=== PATIENT | male | born 1985 | race Caucasian/White ===

== ENCOUNTER 2019-09-16 00:55 | Emergency (ER) | payer SELFPAY ==
[2019-09-16 00:57] VITALS: BP 138/83; PULSE 107; RESP 18; TEMP 37.2; O2SAT 94; BMI 35.6
--- NOTE | 2019-09-16 01:12 | RAD_ITS ---
STUDY: X-RAY CHEST REASON FOR EXAM: Male, 34 years old. c/o nausea, vomiting, blurred vision and being lightheaded -- denies any pain TECHNIQUE: PA and lateral views of the chest. COMPARISON: None. FINDINGS: There is mild right middle lobe atelectasis, remainder of the lungs are clear and expanded. There is no demonstrated pleural abnormality. Normal size heart. Normal mediastinum and kumar. Normal visualized pulmonary arteries. Normal visualized aortic arch and descending thoracic aorta. Normal visualized thoracic spine. Normal visualized ribs, clavicles, and shoulders. There is no demonstrated abnormality of the visualized soft tissue structures of the upper abdomen. RAD/Chest PA and Lateral IMPRESSION: Mild right middle lobe atelectasis otherwise normal x-ray examination of the chest. Electronically Signed: Desire Saez MD at 1:33 EST , Service support ,
--- NOTE | 2019-09-16 01:12 | EKG12_ITS ---
Test Reason : DYSRHYTHMIA Blood Pressure : / mmHG Vent. Rate : 099 BPM Atrial Rate : 099 BPM P-R Int : 170 ms QRS Dur : 088 ms QT Int : 336 ms P-R-T Axes : 036 063 030 degrees QTc Int : 431 ms Normal sinus rhythm Normal ECG Confirmed by ANNA JARAMILLO, BOOGIE ([id number]), general expeditor GUMARO MIGUEL ([id number]) on 09/17/2019 1:54:09 PM Referred By: GERDA Confirmed By:BOOGIE CASTILLO MD
--- NOTE | 2019-09-16 01:13 | ED.VIS.GEN ---
History of Present Illness Chief Complaint: Syncope Informant: Patient Narrative: States that he was having near syncopal episodes at work this evening. 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 He did not pass out. Yesterday he had nausea and vomiting x2 at work. He rested throughout the day today and felt normal when he went to work tonight. Denies any respiratory symptoms. Denies any past medical history. Denies any heart condition. Denies any pulmonary embolism risk factors. Currently he has no symptoms. This happened multiple times at work this evening. He is unsure if he is dehydrated. He does smoke cigarettes. Denies any flulike symptoms. Worsened by getting up. Relieved with resting Past Medical History - Allergies and Home Meds Allergies/Adverse Reactions: Allergies aspirin Adverse Reaction (Verified 09/16/19 00:59) Bleeding Prior records reviewed: Yes Past Medical History: None Surgical History: no surgical history Lives: With Family Smoking Status: Current every day smoker Alcohol: None Drugs: None Review of Systems General: Denies: Chills, Fever, Sweats Eyes: Denies: Visual changes - bilaterally, Diplopia ENT: Denies: Rhinorrhea, Sore throat Cardiovascular: Denies: Chest pain, Palpitations Respiratory: Denies: Dyspnea, Cough, Dyspnea on exertion Gastrointestinal: Reports: Nausea, Vomiting. Denies: Abdominal pain, Diarrhea, Melena, Hematochezia Genitourinary: Denies: Dysuria, Hematuria, Frequency Musculoskeletal: Denies: Back pain, Extremity Pain Skin: Denies: Rash, Wounds Neurological: Denies: Headache, Weakness, Parasthesia, Numbness Physical Exam Vital Signs/Narrative: Vital Signs Temp Pulse Resp BP Pulse Ox 09/16/19 00:57 98.9 F 107 H 18 138/83 H 94 General: Well nourished, Well developed, No Acute Distress Head: Normocephalic, Atraumatic Eyes: Perrl, EOMI ENT: Moist mucous membranes, No rhinorrhea Neck: Supple, Nontender Cardiovascular: Regular rate, Regular rhythm, No murmurs Respiratory: No distress, CTA bilaterally, Chest nontender Abdomen: Soft, Nontender, Nondistended, Normal bowel sounds Back: Nontender, Normal Inspection Extremities: Nontender, No edema Skin: Normal color, No rash Neurological: Alert, Oriented x3, Cranial nerves II-XII grossly intact, Normal Strength, Normal Sensation Psychological: Normal affect, Normal Mood Diagnostic/Tx/Re-eval - Medical Decision Making Lab work EKG and chest x-ray obtained. Patient given IV fluids. Patient felt much better after treatment. EKG shows sinus rhythm at a rate of 99 without acute ischemia or arrhythmia. Chest x-ray normal. Lab work shows no abnormalities including CBC BMP and troponin. At this time is unclear to me the cause of the patient's near syncopal event. He was not feeling well yesterday with nausea and vomiting. Perhaps he is mildly dehydrated. I feel he can follow-up as an outpatient. I do not feel he has an acute cardiac cause. ED Disposition - Plan for ED Patient: Disposition: Home or Assisted Living Diagnosis: Near syncope Instructions: NEAR SYNCOPE, Unknown Referrals: Harsha Armstrong DO [NON CLINICAL AFFILIATE] -
[2019-09-16 01:17] LABS: Absolute Lymphocyte Count 2.49 X10^3/uL (0.83-4.51); Absolute Neutrophil Count 3.8 X10^3/uL (2.0-7.7); Basophil# 0.04 X10^3/uL; Basophil% 0.5 % (0-1); Eosinophil# 0.15 X10^3/uL; Eosinophils% 2.1 % (0-5); Hematocrit 46.1 % (40-54); Hemoglobin 15.9 g/dL (13.0-16.5); Lymphocyte # 2.49 X10^3/ul (4.0); Lymphocyte % 34.1 % (19-41); Mean Corp Hgb Conc 34.5 g/dL (32-36); Mean Corpuscular Hgb 30.9 pg (27.0-32.0); Mean Corpuscular Volume 89.7 fL (80-94); Mean Platelet Vol. 10.8 fl (6.2-12.0); Monocyte# 0.78 X10^3/uL; Monocyte% 10.7 % (0-10); NRBC Flagged by Analyzer 0 % (0-5); Neutrophil # 3.77 X10^3/uL (2.7-7.7); Neutrophil % 51.6 % (47-70); Platelet Count 216 K/mm3 (150-450); RBC Distribution Width SD 39.5 fl (35.1-43.9); Red Blood Count 5.14 M/mm3 (4.6-6.2); White Blood Count 7.3 K/mm3 (4.4-11.0)
[2019-09-16] MEDS: 0.9% Normal Saline 1,000 ML 1000 ML IV (01:29)
[2019-09-16 01:32] LABS: Anion Gap 6 (5-15); BUN 9 mg/dL (7-18); BUN/Creat Ratio 7.9 RATIO (10-20); Calcium,Total 8.7 mg/dL (8.5-10.1); Chloride 113 mmol/L (98-107); Creatinine, Serum 1.14 mg/dL (0.70-1.30); EST Glomerular Filtration Rate 78 mL/min (>60); Est Glom Filt Rate - Afr Amer 95 mL/min (>60); Estimated Creatinine Clearance 86.17 ml/min; Glucose 136 mg/dL (74-106); Potassium 3.7 mmol/L (3.5-5.1); Sodium Level 143 mmol/L (136-145)
[2019-09-16 02:42] VITALS: BP 120/66; PULSE 100; RESP 18; O2SAT 100
== END 2019-09-16 02:47 | disposition home or self-care (01) ==
PROVIDERS: Emergency Provider Emergency Medicine
DX: R55 Syncope and collapse (principal); F17.210 Nicotine dependence, cigarettes, uncomplicated
CPT/HCPCS: 71046; 80048; 84484; 85025; 93005; 96360; 99283; J7030; A4216